=== PATIENT | female | born 1945 | race Caucasian/White ===

== ENCOUNTER → 2022-03-22 | Outpatient (CLI) | payer MEDICARE ==
[~2022-03-22] MED LIST: CHLO25TA PO; FOSI40TA59 PO; MULT-40 PO
== END ==
LOC: M LABSMTC 10:25
PROVIDERS: ATTEND Anesthesiology
DX: Z01.818 Encounter for other preprocedural examination (principal); Z11.52 Encounter for screening for COVID-19

== ENCOUNTER 2022-03-24 07:33 | Day surgery (SDC) | payer MEDICARE ==
[~2022-03-24] VITALS: Ht 162.6 cm; Wt 52.6 kg
[~2022-03-24 07:33] MED LIST changes: +NS 1,000 ML IV ONE
[2022-03-24] MEDS ORDERED: CLAR10CA3 PO (07:57)
[2022-03-24] MEDS ORDERED: MONT10TA97 PO (07:58)
[2022-03-24] MEDS ORDERED: FAMO10TA50 PO (07:59)
[2022-03-24] MEDS ORDERED: FLON1SPR NARES (08:00)
[2022-03-24] MEDS ORDERED: LIDOCAINE 2% 100MG/5ML SDV (FOR ANES.) As Ordered ONE (08:35)
[2022-03-24] MEDS ORDERED: propofoL 200 MG/20 ML VIAL As Ordered ONE (08:35)
[2022-03-24 09:15] VITALS: BP 131/59
== END 2022-03-24 09:29 | disposition home or self-care (01) ==
LOC: M OPP 07:33
PROVIDERS: ATTEND Surgery
DX: R19.5 Other fecal abnormalities (principal); Z79.899 Other long term (current) drug therapy; I10 Essential (primary) hypertension